=== PATIENT | male | born 1960 | race Caucasian/White ===

== ENCOUNTER 2017-08-11 09:46 | Emergency (ER) | payer BC, OTHER ==
[2017-08-11] MEDS ORDERED: Ketorolac 60 MG/2 ML SDV IM ONE (09:57)
[2017-08-11] MEDS ORDERED: Triamcinolone Acetonide 40 MG/ML 1 ML MDV INJECT ONE (09:57)
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
[2017-08-11] MEDS ORDERED: Sodium Chloride 0.9% 10 ML Syringe FLUSH PRN (10:16)
[2017-08-11] MEDS ORDERED: Ondansetron 4 MG/2 ML SDV IVPUSH ONE (10:16)
[2017-08-11] MEDS ORDERED: fentaNYL 100 MCG/2 ML SDV IVPUSH ONE ×2 (10:16→10:39)
== END 2017-08-11 11:10 ==
LOC: LL.ED 09:46
DX: G62.9 Polyneuropathy, unspecified (principal); F41.8 Other specified anxiety disorders; M15.0 Primary generalized (osteo)arthritis; K21.9 Gastro-esophageal reflux disease without esophagitis; N28.9 Disorder of kidney and ureter, unspecified; E78.00 Pure hypercholesterolemia, unspecified; Z79.899 Other long term (current) drug therapy; Z87.891 Personal history of nicotine dependence
CPT/HCPCS: 96372; 96374; 96375; 99285; J1885; J2405; J3010; J3301; J3360